=== PATIENT | male | born 1955 | race Caucasian/White ===

== ENCOUNTER → 2019-07-04 | Outpatient (CLI) | payer OTHER ==
--- NOTE | 2019-07-11 00:11 | PFR/MVV ---
[facility] [place] [address] PULMONARY FUNCTION MVV/REPORT Name: VERNELL SAMANIEGO Room #: REG MARIPOSA Matthew#: [id number] Admission: 07/04/19 Attend Phys: Warren Blanchard MD Discharge: Date of : 59 Report #: [id number] THIS REPORT FOR: //name// >> SPIROMETRY: (BTPS) Height: 66 in cm Weight: 145 lbs kg Exam Date: 07/04/19 PRE-RX POST-RX PRED BEST %PRED BEST %PRED %CHG FVC LITERS . 4.00 . 2.58 . 64 . 3.11 . 78 . 21 FEV1 LITERS . 2.86 . 1.05 . 37 . 1.28 . 45 . 21 FEV1/FVC % . 72 . 41 . 57 . 41 . 57 . 0 NKQ06-14% L/Sec . 2.87 . 0.27 . 9 . 0.31 . 11 . 16 PEF L/SEC . 7.63 . 2.66 . 35 . 3.44 . 45 . 30 FEF50/FIF50 UNITLESS . <1.00 . 0.21 . . 0.22 . . 4 MVV L/Min . 125 . 35 . 28 f 1/Min . . 70 . >> LUNG VOLUMES: (BTPS) PRE-RX POST-RX PRED AVG %PRED AVG %PRED %CHG VC Liters . 4.00 . 2.58 . 64 . . . TLC Liters . 5.69 . 5.47 . 96 . . . RV Liters . 2.11 . 2.89 . 137 . . . RV/TLC % . 38 . 53 . 141 . . . FRC PL Liters . 3.36 . 3.22 . 96 . . . FRC N2 Liters . 3.36 . . . . . ERV Liters . 1.36 . 0.33 . 24 . . . IC Liters . 2.72 . 1.97 . 72 . . . >> DIFFUSION: DLCO ml/Min/mmHg . . . . . . DL Radha ml/Min/mmHg . . . . . . DLCO/VA ml/Min/mmHg . . . . . . VA Liters . . . . . . COMMENTS: COMMENTS: >> RESISTANCE: [facility] [address] [place] [address] PULMONARY FUNCTION MVV/REPORT Name: VERNELL SAMANIEGO Room #: REG MARIPOSA Matthew#: [id number] Admission: 07/04/19 Attend Phys: Warren Blanchard MD Discharge: Date of : 59 Report #: [id number] PRE-RX PRED AVG %PRED Raw Total cmH20/L/Sec . . 8.18 . Raw Insp cmH20/L/Sec . . 6.60 . Raw Exp cmH20/L/Sec . . 15.36 . Raw cmH20/L/Sec . 1.36 . 5.94 . 437 Gaw L/Sec/cmH20 . 0.805 . 0.168 . 21 sRaw cmH20 Sec . 4.56 . 28.29 . 620 sGaw l/cmH20 Sec . 0.219 . 0.035 . 16 Vtq Liters . . 4.76 . # = OUTSIDE 95% CONFIDENCE INTERVAL CALIBRATION: PRED: 3.00 ACTUAL: EXP 3.[address] [facility]-OL10-06 [facility]-05 N-1804-4 >> INTERPRETATION/IMPRESSION: CC: Warren Blanchard FAM unknown PULMONARY FUNCTION STUDIES SPIROMETRY: FEV1 is 1.05 liters (37%), FVC is 2.58 liters (64%), FEV1/FVC ratio is 41%. Post-bronchodilator response is significant with a 21% change. LUNG VOLUMES: Total lung capacity is 5.47 liters (96%). RV 2.89 liters (137%). IMPRESSION: Pulmonary function studies are consistent with a very severe obstructive airflow defect with a significant response to bronchodilator therapy. There is mild air trapping. Diffusing capacity was not performed. <ELECTRONICALLY SIGNED> By: Kt Alicia MD 07/11/19 0011 Kt Alicia MD /nt
== END ==
LOC: PUL 07:52
DX: J98.4 Other disorders of lung (principal); J98.11 Atelectasis